=== PATIENT | female | born 1945 | race Caucasian/White ===

== ENCOUNTER 2018-10-08 13:30 | Outpatient (CLI) | payer BC, MEDICARE ==
--- NOTE | 2018-10-08 15:17 | RAD ---
CHEST TWO VIEWS: 10/08/18 INDICATION: History of cough. COMPARISON: None. FINDINGS: There is mild cardiomegaly. There are calcified granuloma within the right upper lobe. There are calc ified lymph nodes within the right aspect of the mediastinum as well as the right hilar region. Lungs are otherwise clear. No pleural effusion or pneumothorax is evident. No acute osseous abnormality is evident. IMPRESSION: 1. No acute abnormality. 2. Findings of prior granulomatous disease. 3. Mild cardiomegaly. POS: [facility]
== END 2018-10-08 13:31 | disposition home or self-care (01) ==
LOC: BICRAD 13:30
PROVIDERS: ATTEND Internal Medicine
DX: R05 Cough (principal); I51.7 Cardiomegaly
CPT/HCPCS: 71046; 80053; 80061; 82306; 83036; 85025; 85060; 86803

== ENCOUNTER 2018-10-17 14:20 | Outpatient (CLI) | payer BC, MEDICARE | END 2018-10-17 14:21 | disposition home or self-care (01) | LOC: ULT 14:20 | PROVIDERS: ATTEND Internal Medicine | DX: I51.7 Cardiomegaly (principal); I08.8 Other rheumatic multiple valve diseases | CPT/HCPCS: 93306 ==

== ENCOUNTER 2018-12-24 09:53 | Outpatient (CLI) | payer BC, MEDICARE ==
--- NOTE | 2019-02-12 13:15 | MMO ---
Bilateral MAMMO Bilat Screen [facility]. CLINICAL HISTORY: Patient is 73 years old and is seen for screening. The patient has no family history of breast cancer. The patient has no personal history of cancer. VIEWS: The views performed were: bilateral craniocaudal and bilateral mediolateral oblique. FILMS COMPARED: The present examination has been compared to prior imaging studies performed at [facility] on 07/14/2014, 11/01/2016 and 12/13/2017. MAMMOGRAM FINDINGS: There are scattered fibroglandular densities. There are no suspicious masses, suspicious calcifications, or new areas of architectural distortion. IMPRESSION: THERE IS NO MAMMOGRAPHIC EVIDENCE OF MALIGNANCY. A ROUTINE FOLLOW-UP MAMMOGRAM IN 1 YEAR IS RECOMMENDED. THE RESULTS OF THIS EXAM WERE SENT TO THE PATIENT. ACR BI-RADS Category 1 - Negative MAMMOGRAPHY NOTE: 1. A negative mammogram report should not delay a biopsy if a dominant of clinically suspicious mass is present. 2. Approximately 10% to 15% of breast cancers are not detected by mammography. 3. Adenosis and dense breasts may obscure an underlying neoplasm.
== END 2018-12-24 09:54 | disposition home or self-care (01) ==
LOC: BICMAMMO 09:53
PROVIDERS: ATTEND Internal Medicine
DX: Z12.31 Encounter for screening mammogram for malignant neoplasm of breast (principal)
CPT/HCPCS: 77063; 77067

== ENCOUNTER 2019-01-26 08:12 | Emergency (ER) | payer MEDICARE, OTHER ==
--- NOTE | 2019-01-26 08:43 | RAD ---
F3 views right toes: 01/26/2019 COMPARISON: None HISTORY: Injury to the great toe FINDINGS: Prominent degenerative changes of the first metatarsal phalangeal joint with joint space na rrowing, subchondral sclerosis, and osteophyte formation. No displaced fracture or evidence of disloc ation. IMPRESSION: Prominent first MTP degenerative change. No acute fracture or dislocation seen.
== END 2019-01-26 09:02 | disposition home or self-care (01) ==
LOC: ERS 08:12
DX: M79.674 Pain in right toe(s) (principal)

== ENCOUNTER 2019-07-15 08:11 | Outpatient (CLI) | payer MEDICARE, OTHER ==
--- NOTE | 2019-07-15 08:59 | BD ---
EXAM: DEXA bone density examination HISTORY: 74-year-old postmenopausal female for screening COMPARISON: None FINDINGS: L1--bone mineral density 0.800 g/sq cm; T score -1.7 L2--bone mineral density 0.961 g/sq cm; T score -0.6 L3--bone mineral density 0.902 g/sq cm; T score -1.7 L4--bone mineral density 1.019 g/sq cm; T score -0.4 Total L1-L4--bone mineral density 0.922 g/sq cm; T score -1.1 Left femoral neck--bone mineral density0.607; T score -2.2 Total proximal left femur--bone mineral density 0.962; T score 0.2 IMPRESSION: Osteopenia This patient has a 10 year WHO fracture risk of a major osteoporotic fracture of 14% and of a hip fracture of 3.5%.
== END 2019-07-15 08:12 | disposition home or self-care (01) ==
LOC: BICMAMMO 08:11
PROVIDERS: ATTEND Internal Medicine
DX: Z13.820 Encounter for screening for osteoporosis (principal); Z78.0 Asymptomatic menopausal state; M85.89 Other specified disorders of bone density and structure, multiple sites
CPT/HCPCS: 77080

== ENCOUNTER 2019-08-26 11:47 | Outpatient (CLI) | payer MEDICARE, OTHER ==
--- NOTE | 2019-08-26 12:15 | RAD ---
EXAM: Left hip 2 views: HISTORY: Left hip pain for several years COMPARISON: None FINDINGS: Left hip joint osteoarthrosis. Degenerative changes. No acute fracture or dislocation or other significant acute osseous abnormality. IMPRESSION: No significant acute process.
== END 2019-08-26 11:48 | disposition home or self-care (01) ==
LOC: BICRAD 11:47
PROVIDERS: ATTEND Internal Medicine
DX: M25.552 Pain in left hip (principal)

== ENCOUNTER 2019-10-02 10:31 | Outpatient (CLI) | payer MEDICARE, OTHER ==
--- NOTE | 2019-10-02 11:11 | RAD ---
XR Wrist 3 Rt View STANDARD HISTORY: Right wrist pain FINDINGS: No fracture or dislocation is identified.Degenerative changes are present most prominent at the first carpometacarpal joint
--- NOTE | 2019-10-02 11:11 | RAD ---
XR Hand Rt 3 View STANDARD HISTORY: Right hand swelling and pain FINDINGS: No fracture or dislocation is identified. Degenerative changes are present most prominent at the firs t carpometacarpal joint.
== END 2019-10-02 10:32 | disposition home or self-care (01) ==
LOC: BICRAD 10:31
PROVIDERS: ATTEND Physician Assistant
DX: M25.531 Pain in right wrist (principal); M79.89 Other specified soft tissue disorders

== ENCOUNTER 2019-10-09 10:31 | Outpatient (CLI) | payer MEDICARE ==
--- NOTE | 2019-10-09 11:18 | ULT ---
EXAM: Ultrasound of the palmar right wrist DATE: 10/09/2019 12:00 AM INDICATION: Palpable abnormality of the palmar aspect of the right wrist COMPARISON: Right wrist radiograph dated October 02, 2019 FINDING: Grayscale ultrasound images were obtained of the palpable region of interest on the palmar aspect of the right wrist. There is a nonspecific mild joint effusion involving the radiocarpal joint. Visualized aspects of the FDS and FDP tendons appear intact without evidence of T9 synovitis. Visualized ulnar neural vasculature appears within normal limits. No mass is evident. No synovial cyst is grossly evident within this region. IMPRESSION: 1. Nonspecific mild joint effusion of the right wrist. MRI the right wrist may be helpful for further evaluation. Patient does report some tenderness and pain along the ulnar aspect of the right wrist. The patient does have mild ulnar positive configuration at the DRUJ on the comparison radiogra ph. Underlying TFC tear cannot be entirely excluded. 2. No sonographic mass or cyst seen within the palpable region of interest along the palmar aspect of the right wrist. No tenosynovitis demonstrated within this region.
== END 2019-10-09 10:32 | disposition home or self-care (01) ==
LOC: ULT 10:31
PROVIDERS: ATTEND Physician Assistant
DX: M25.531 Pain in right wrist (principal); M25.431 Effusion, right wrist
CPT/HCPCS: 76999; 80053; 82248; 83615; 84100; 84550

== ENCOUNTER 2019-10-10 13:40 | Outpatient (CLI) | payer MEDICARE, OTHER ==
--- NOTE | 2019-10-10 14:10 | RAD ---
EXAM: XR Hand Lt 3 View STANDARD PROVIDED CLINICAL HISTORY: Pain COMPARISON: 10/02/2019 right hand FINDINGS: Advanced first CMC degenerative changes are seen, more conspicuous than on the right. No evidence for fracture or other acute osseous abnormality. Alignment appears anatomic. Joint spaces appear otherwise maintained. IMPRESSION: First CMC degenerative change.
== END 2019-10-10 13:41 | disposition home or self-care (01) ==
LOC: BICRAD 13:40
PROVIDERS: ATTEND Internal Medicine
DX: M79.642 Pain in left hand (principal); M79.641 Pain in right hand; M18.12 Unilateral primary osteoarthritis of first carpometacarpal joint, left hand

== ENCOUNTER 2019-11-03 10:05 | Outpatient (CLI) | payer MEDICARE ==
--- NOTE | 2019-11-03 10:19 | RAD ---
THREE VIEWS LEFT SHOULDER: HISTORY: Pain. COMPARISON: None. FINDINGS: Osteophyte formation of the inferior aspect of the humeral head is noted. No glenohumeral joint space loss. No fractures or dislocation. Visualized left ribs are unremarkable. IMPRESSION: Osteophyte formation along the inferior medial aspect of the left humerus. No significant fracture di slocation. Transcribed Date/Time: 11/03/2019 10:56 AM
== END 2019-11-03 10:06 | disposition home or self-care (01) ==
LOC: BICRAD 10:05
PROVIDERS: ATTEND Internal Medicine
DX: M25.512 Pain in left shoulder (principal)

== ENCOUNTER 2019-12-29 14:16 | Outpatient (CLI) | payer MEDICARE ==
--- NOTE | 2019-12-29 15:07 | MMO ---
Bilateral MAMMO Bilat Screen [facility]. CLINICAL HISTORY: Patient is 74 years old and is seen for screening. The patient has no family history of breast cancer. The patient has no personal history of cancer. VIEWS: The views performed were: bilateral craniocaudal with tomosynthesis and bilateral mediolateral oblique with tomosynthesis. FILMS COMPARED: The present examination has been compared to prior imaging studies performed at [facility] on 12/24/2018, and at [facility] on 07/14/2014, 11/01/2016 and 12/13/2017. This study has been interpreted with the assistance of computer-aided detection. MAMMOGRAM FINDINGS: There are scattered fibroglandular densities. Finding 1: There are stable benign appearing calcifications seen in both breasts. Finding 2: There are stable benign appearing densities seen in both breasts. There are no suspicious masses, suspicious calcifications, or new areas of architectural distortion. IMPRESSION: THERE IS NO MAMMOGRAPHIC EVIDENCE OF MALIGNANCY. A ROUTINE FOLLOW-UP MAMMOGRAM IN 1 YEAR IS RECOMMENDED. THE RESULTS OF THIS EXAM WERE SENT TO THE PATIENT. ACR BI-RADS Category 2 - Benign finding MAMMOGRAPHY NOTE: 1. A negative mammogram report should not delay a biopsy if a dominant of clinically suspicious mass is present. 2. Approximately 10% to 15% of breast cancers are not detected by mammography. 3. Adenosis and dense breasts may obscure an underlying neoplasm. Reported by: KYLIE HIGGINS MD Electonically Signed: [id number]
== END 2019-12-29 14:17 | disposition home or self-care (01) ==
LOC: BICMAMMO 14:16
PROVIDERS: ATTEND Internal Medicine
DX: Z12.31 Encounter for screening mammogram for malignant neoplasm of breast (principal)
CPT/HCPCS: 77063; 77067

== ENCOUNTER 2020-06-16 07:32 | Outpatient (CLI) | payer MEDICARE ==
--- NOTE | 2020-06-16 09:03 | MRI ---
MRI LUMBAR SPINE WITHOUT CONTRAST: Date: 06/16/2020 INDICATION: Spondylosis of lumbar spine. Low back pain. FINDINGS: Lumbar vertebra maintain normal height and alignment. Vertebral body signal is normally preserved. There is loss of disc space at L4-5 and L5-S1 with degenerative disc and end plate changes at these l evels. Mild loss of disc space at L1-2. T12-L1: No significant abnormality. L1-2: A diffuse broad based disc bulge flattens the thecal sac. Facet arthrosis and mild hypertrophy . Mild central canal stenosis. Asymmetric disc bulge to the right produces mild right foraminal encro achment. L2-3: Mild disc bulge. Mild facet arthrosis. No significant central canal or foraminal stenosis. L3-4: Mild disc bulge. Mild facet hypertrophy. No central canal or foraminal stenosis. L4-5: Diffuse broad based disc bulge. Facet arthrosis and hypertrophy. Mild central canal stenosis. Mild bilateral foraminal narrowing due to broad based disc bulge and facet hypertrophy. L5-S1: Mild diffuse disc bulge. No significant central canal stenosis. Mild bilateral foraminal narr owing secondary to hypertrophic change. IMPRESSION: Degenerative disc changes, most prominent at L1-2, L4-5, and L5-S1, with findings as described above. POS: [facility]
== END 2020-06-16 07:33 | disposition home or self-care (01) ==
LOC: BICMRI 07:32
PROVIDERS: ATTEND Orthopaedic Surgery
DX: M47.816 Spondylosis without myelopathy or radiculopathy, lumbar region (principal); M47.817 Spondylosis without myelopathy or radiculopathy, lumbosacral region; M51.86 Other intervertebral disc disorders, lumbar region; M51.87 Other intervertebral disc disorders, lumbosacral region; M48.061 Spinal stenosis, lumbar region without neurogenic claudication; M48.07 Spinal stenosis, lumbosacral region
CPT/HCPCS: 72148

== ENCOUNTER 2021-01-19 09:51 | Outpatient (CLI) | payer MEDICARE | END 2021-01-19 09:52 | disposition home or self-care (01) | LOC: BICMAMMO 09:51 | PROVIDERS: ATTEND Internal Medicine | DX: Z12.31 Encounter for screening mammogram for malignant neoplasm of breast (principal) | CPT/HCPCS: 77063; 77067 ==

== ENCOUNTER 2021-02-15 09:20 | Outpatient (CLI) | payer MEDICARE | END 2021-02-15 09:21 | disposition home or self-care (01) | LOC: BICMAMMO 09:20 | PROVIDERS: ATTEND Internal Medicine | DX: M85.89 Other specified disorders of bone density and structure, multiple sites (principal) | CPT/HCPCS: 77080 ==

== ENCOUNTER 2021-12-15 09:18 | Outpatient (CLI) | payer MEDICARE ==
[2021-12-15 10:57] LABS: Hemoglobin 12.5 g/dL (12.0-15.5); Mean Corpuscular HGB CONC 32.5 g/dL (32.0-36.0); Mean Corpuscular Hemoglobin 31.3 pg (27.0-33.0); Mean Corpuscular Volume 96.5 fl (81.6-98.3); Mean Platelet Volume 10.6 fl (7.4-10.4); Platelet Count 208 10x3/uL (150-450); RBC Distribution Width 12.5 % (11.5-14.5); Red Blood Cell (RBC) Count 3.99 10x6/uL (3.90-5.03); White Blood Cell (WBC) Count 10.5 10x3/uL (3.5-10.5)
[2021-12-15 11:03] LABS: PTT 25.3 sec (22.0-33.0); Prothrombin Time 10.6 sec (9.5-12.1)
[2021-12-15 11:10] LABS: Anion Gap 9 mmol/L (10-20); BUN (Urea Nitrogen) 18 mg/dL (9.8-20.1); Calc. Creatinine Clearance 0 mL/min (70-130); Calcium 9.5 mg/dL (7.8-10.44); Carbon Dioxide 26 mmol/L (23-31); Chloride 109 mmol/L (98-107); Glucose 99 mg/dL (83-110); Potassium 4.3 mmol/L (3.5-5.1); Sodium 140 mmol/L (136-145)
[2021-12-15 19:03] LABS: SARS-CoV-2 PCR by NAA Not Detected (NotDetected)
== END 2021-12-15 09:19 | disposition home or self-care (01) ==
LOC: LABBT 09:18
PROVIDERS: ATTEND Surgery
DX: Z01.818 Encounter for other preprocedural examination (principal); M51.16 Intervertebral disc disorders with radiculopathy, lumbar region; Z20.822 Contact with and (suspected) exposure to COVID-19
CPT/HCPCS: 80048; 85027; 85610; 85730; 93005; U0003; U0005; 93010

== ENCOUNTER 2022-06-29 12:18 | Outpatient (CLI) | payer MEDICARE | END 2022-06-29 12:19 | disposition home or self-care (01) | LOC: TBSIIMAG 12:18 | PROVIDERS: ATTEND Nurse Practitioner Family | DX: M47.26 Other spondylosis with radiculopathy, lumbar region (principal); M51.16 Intervertebral disc disorders with radiculopathy, lumbar region | CPT/HCPCS: 72148 ==

== ENCOUNTER 2022-07-13 13:00 | Outpatient (CLI) | payer MEDICARE ==
[2022-07-13 15:42] LABS: Hemoglobin 12.9 g/dL (12.0-15.5); Mean Corpuscular HGB CONC 33.3 g/dL (32.0-36.0); Mean Corpuscular Hemoglobin 31.5 pg (27.0-33.0); Mean Corpuscular Volume 94.4 fl (81.6-98.3); Mean Platelet Volume 11.7 fl (7.4-10.4); Platelet Count 215 10x3/uL (150-450); RBC Distribution Width 13.1 % (11.5-14.5); White Blood Cell (WBC) Count 11.6 10x3/uL (3.5-10.5)
[2022-07-13 15:45] LABS: MDiff Complete? YES; Manual Diff?? YES
[2022-07-13 15:57] LABS: Anion Gap 12 mmol/L (10-20); BUN (Urea Nitrogen) 10 mg/dL (9.8-20.1); Calc. Creatinine Clearance 0 mL/min (70-130); Calcium 9.7 mg/dL (7.8-10.44); Carbon Dioxide 26 mmol/L (23-31); Chloride 107 mmol/L (98-107); Estimated GFR 71; Glucose 132 mg/dL (83-110); Potassium 4.1 mmol/L (3.5-5.1); Sodium 141 mmol/L (136-145)
[2022-07-13 16:00] LABS: Eosinophils 1 % (0-10); Lymphocytes 47 % (21-51); Monocytes 4 % (0-10); Neutrophil 46 % (42-75); Reactive Lymphocytes 2 % (0-10)
[2022-07-13 16:01] LABS: Platelet Morphology Comment Appears Adequate
[2022-07-13 16:02] LABS: INR-International Normal Ratio 0.9; Prothrombin Time 10.2 sec (9.5-12.1)
== END 2022-07-13 13:01 | disposition home or self-care (01) ==
LOC: LABBT 13:00
PROVIDERS: ATTEND Orthopaedic Surgery
DX: Z01.818 Encounter for other preprocedural examination (principal); M16.12 Unilateral primary osteoarthritis, left hip; Z20.822 Contact with and (suspected) exposure to COVID-19
CPT/HCPCS: 80048; 85025; 85610; 87081; 87811; 93005; 93010

== ENCOUNTER 2022-07-18 06:56 | Inpatient (IN) | payer MEDICARE ==
[2022-07-17 10:35] VITALS: BMI 26.6
[2022-07-18] MEDS ORDERED: Tranexamic Acid 1,000 MG/10 ML VIAL ONE (07:28)
[2022-07-18] MEDS ORDERED: Sodium Chloride 0.9% 100 ML ONE ×2 (07:29→09:49)
[2022-07-18] MEDS ORDERED: Vancomycin 1 GM/200 ML BAG ONE (07:29)
[2022-07-18] MEDS ORDERED: Midazolam HCl 2 mg/2 ml Vial ONE (08:18)
[2022-07-18] MEDS ORDERED: Fentanyl 100 MCG/2 ML VIAL ONE (08:18)
[2022-07-18] MEDS ORDERED: Promethazine HCl 25 MG SUPP PR PRN (09:00)
[2022-07-18] MEDS ORDERED: HYDROcodone/Acetaminophen 5/325 mg Tablet PO PRN ×2 (09:00)
[2022-07-18] MEDS ORDERED: Moisturizing Cream (Eucerin) 113 GM JAR TOP PRN (09:00)
[2022-07-18] MEDS ORDERED: Naloxone HCl 0.4 mg/ml Vial IVP PRN (09:00)
[2022-07-18] MEDS ORDERED: diphenhydrAMINE 50 MG/ML VIAL IM PRN (09:00)
[2022-07-18] MEDS ORDERED: Naloxone HCl 0.4 mg/ml Vial IV PRN (09:00)
[2022-07-18] MEDS ORDERED: Zolpidem Tartrate 5 MG TAB PO PRN ×2 (09:00→11:44)
[2022-07-18] MEDS ORDERED: diphenhydrAMINE 50 MG/ML VIAL IVP PRN (09:00)
[2022-07-18] MEDS ORDERED: diphenhydrAMINE 25 MG CAP PO PRN ×2 (09:00→11:44)
[2022-07-18] MEDS ORDERED: traMADol HCl 50 MG TAB PO PRN ×2 (09:00)
[2022-07-18] MEDS ORDERED: Ondansetron PF 4 MG/2 ML Vial IVP PRN (09:00)
[2022-07-18] MEDS ORDERED: Bupivacaine 0.25% 10 ML VIAL EPIDURAL PRN (09:00)
[2022-07-18] MEDS ORDERED: Promethazine HCl 25 MG/ML VIAL IM PRN ×2 (09:00→11:44)
[2022-07-18] MEDS ORDERED: fentaNYL Citrate/PF 100 MCG/2 ML SYRINGE ONE ×2 (09:11→11:23)
[2022-07-18] MEDS ORDERED: CEFAZOLIN 2 GM VIAL ONE (09:49)
[2022-07-18] MEDS ORDERED: NEOSTIGMINE 3 MG/3 ML SYR 3 MG/3 ML SYRINGE ONE (10:12)
[2022-07-18] MEDS ORDERED: Glycopyrrolate 0.2 MG/ML 5 ML SYRINGE ONE (10:12)
[2022-07-18] MEDS ORDERED: Ondansetron PF 4 MG/2 ML Vial ONE (10:12)
[2022-07-18] MEDS ORDERED: Rocuronium Bromide 10 MG/ML (10ML VIAL) ONE (10:12)
[2022-07-18] MEDS ORDERED: Dexamethasone 20 MG/5 ML VIAL ONE (10:12)
[2022-07-18] MEDS ORDERED: Lidocaine 1.5% w/Epi 1:200K 30 ML VIAL (Epid Use) ONE (10:12)
[2022-07-18] MEDS ORDERED: PROPOFOL 200 MG/20 ML VIAL ONE (10:12)
[2022-07-18] MEDS ORDERED: Lidocaine 1% MPF 2 ML VIAL ONE (10:12)
[2022-07-18] MEDS ORDERED: Ropivacaine 0.2% HCl/PF 20 ML ONE (11:24)
[2022-07-18] MEDS ORDERED: Acetaminophen 325 MG TAB PO PRN (11:44)
[2022-07-18] MEDS ORDERED: Aspirin 81 mg Enteric Coated Tablet PO SCH (12:45)
[2022-07-18] MEDS: Ketorolac Tromethamine 30 MG/ML VIAL IVP SCH ×3 (17:11→23:23)
[2022-07-18] MEDS: CEFAZOLIN 2 GM in Sodium Chloride 0.9% 100 ML IVPB SCH (18:33)
[2022-07-18] MEDS: Aspirin 81 mg Enteric Coated Tablet PO SCH (21:13)
[2022-07-18] MEDS: Sodium Chloride 0.9% 1,000 ML IV SCH (21:14)
[2022-07-18] MEDS ORDERED: Vancomycin 1 GM in Premix Bag 1 BAG IVPB SCH (22:00)
[2022-07-19] MEDS: CEFAZOLIN 2 GM in Sodium Chloride 0.9% 100 ML IVPB SCH (02:55)
[2022-07-19] MEDS: Sodium Chloride 0.9% 1,000 ML IV SCH ×3 (02:56→23:51)
[2022-07-19] MEDS: FENTANYL CITRATE EPIDURAL SCH (03:26)
[2022-07-19] MEDS: SODIUM CHLORIDE 0.9% EPIDURAL SCH (03:26)
[2022-07-19] MEDS: BUPIVACAINE 0.5% EPIDURAL SCH (03:26)
[2022-07-19 05:27] LABS: Hemoglobin 10.3 g/dL (12.0-16.0); Mean Corpuscular HGB CONC 33.9 g/dL (32.0-36.0); Mean Corpuscular Hemoglobin 33.4 pg (27.0-31.0); Mean Corpuscular Volume 98.6 fL (78.0-98.0); Mean Platelet Volume 8.6 fL (7.4-10.4); Platelet Count 171 thou/uL (130-400); RBC Distribution Width 11.9 % (11.5-14.5); Red Blood Cell (RBC) Count 3.07 mill/uL (4.20-5.40); White Blood Cell (WBC) Count 12.3 thou/uL (4.8-10.8)
[2022-07-19] MEDS: Ketorolac Tromethamine 30 MG/ML VIAL IVP SCH ×4 (06:29→23:54)
[2022-07-19] MEDS: Senokot S 8.6-50 MG TAB PO SCH ×2 (09:06→20:36)
[2022-07-19] MEDS: Multivitamin W/ Minerals 1 TAB PO SCH (09:06)
[2022-07-19] MEDS: Aspirin 81 mg Enteric Coated Tablet PO SCH ×2 (09:06→20:36)
[2022-07-19] MEDS: Ferrous Gluconate 324 MG TAB PO SCH ×2 (09:06→18:49)
[2022-07-19] MEDS: Ondansetron PF 4 MG/2 ML Vial IVP PRN (09:16)
[2022-07-20] MEDS: FENTANYL CITRATE EPIDURAL SCH (00:42)
[2022-07-20] MEDS: SODIUM CHLORIDE 0.9% EPIDURAL SCH (00:42)
[2022-07-20] MEDS: BUPIVACAINE 0.5% EPIDURAL SCH (00:42)
[2022-07-20] MEDS: Sodium Chloride 0.9% 1,000 ML IV SCH ×2 (03:29→17:17)
[2022-07-20] MEDS: Ketorolac Tromethamine 30 MG/ML VIAL IVP SCH (05:17)
[2022-07-20 05:35] LABS: Hemoglobin 10.4 g/dL (12.0-16.0); Mean Corpuscular HGB CONC 33.3 g/dL (32.0-36.0); Mean Corpuscular Hemoglobin 32.7 pg (27.0-31.0); Mean Corpuscular Volume 98.1 fL (78.0-98.0); Mean Platelet Volume 8.4 fL (7.4-10.4); Platelet Count 159 thou/uL (130-400); RBC Distribution Width 11.9 % (11.5-14.5); Red Blood Cell (RBC) Count 3.19 mill/uL (4.20-5.40); White Blood Cell (WBC) Count 11.6 thou/uL (4.8-10.8)
[2022-07-20] MEDS: Multivitamin W/ Minerals 1 TAB PO SCH (08:59)
[2022-07-20] MEDS: Senokot S 8.6-50 MG TAB PO SCH (09:00)
[2022-07-20] MEDS: Aspirin 81 mg Enteric Coated Tablet PO SCH (09:00)
[2022-07-20] MEDS: Ferrous Gluconate 324 MG TAB PO SCH ×2 (09:01→19:40)
[2022-07-20] MEDS: Ondansetron PF 4 MG/2 ML Vial IVP PRN (10:06)
[2022-07-20 16:42] VITALS: BP 163/75; TEMP 97.8
== END 2022-07-20 16:40 | disposition home or self-care (01) | DRG 470 ==
LOC: SDC 06:56 → SURG A 13:32 → OBSVTOIN 07-20 13:32
PROVIDERS: ADMIT Orthopaedic Surgery; ATTEND Orthopaedic Surgery
PROC: 0SRB04Z Replacement of Left Hip Joint with Ceramic on Polyethylene Synthetic Substitute, Open Approach (ICD-10-PCS; principal; 2022-07-18)
DX: M16.12 Unilateral primary osteoarthritis, left hip (principal); C91.10 Chronic lymphocytic leukemia of B-cell type not having achieved remission; Z20.822 Contact with and (suspected) exposure to COVID-19; K59.00 Constipation, unspecified; J45.20 Mild intermittent asthma, uncomplicated; R73.03 Prediabetes; K21.9 Gastro-esophageal reflux disease without esophagitis; Z88.2 Allergy status to sulfonamides; Z88.8 Allergy status to other drugs, medicaments and biological substances; Z88.1 Allergy status to other antibiotic agents; Z88.5 Allergy status to narcotic agent; Z91.041 Radiographic dye allergy status; Z98.42 Cataract extraction status, left eye; Z98.41 Cataract extraction status, right eye; Z90.09 Acquired absence of other part of head and neck; Z90.710 Acquired absence of both cervix and uterus; Z79.82 Long term (current) use of aspirin; Z79.899 Other long term (current) drug therapy
CPT/HCPCS: 36415; 72170; 85027; C1776; J0690; J1100; J1885; J2001; J2250; J2405; J2704; J2795; J3010; J3370; J3490; J7050

== ENCOUNTER 2023-01-30 09:45 | Outpatient (CLI) | payer MEDICARE | END 2023-01-30 09:46 | disposition home or self-care (01) | LOC: BICMAMMO 09:45 | PROVIDERS: ATTEND Internal Medicine | DX: Z12.31 Encounter for screening mammogram for malignant neoplasm of breast (principal); Z78.0 Asymptomatic menopausal state; M85.80 Other specified disorders of bone density and structure, unspecified site | CPT/HCPCS: 77063; 77067; 77080 ==

== ENCOUNTER 2023-11-14 09:52 | Outpatient (CLI) | payer MEDICARE | END 2023-11-14 09:53 | disposition home or self-care (01) | LOC: BICRAD 09:52 | PROVIDERS: ATTEND Internal Medicine | DX: J16.8 Pneumonia due to other specified infectious organisms (principal); R91.8 Other nonspecific abnormal finding of lung field | CPT/HCPCS: 71046 ==

== ENCOUNTER 2024-08-08 14:05 | Outpatient (CLI) | payer MEDICARE | END 2024-08-08 14:06 | disposition home or self-care (01) | LOC: ULT 14:05 | PROVIDERS: ATTEND Internal Medicine | DX: N28.9 Disorder of kidney and ureter, unspecified (principal) | CPT/HCPCS: 76770 ==

== ENCOUNTER → 2024-09-17 | Outpatient (CLI) | payer MEDICARE | LOC: BICRAD 14:14 | PROVIDERS: ATTEND Nurse Practitioner Family | DX: M79.671 Pain in right foot (principal); M77.31 Calcaneal spur, right foot; Z96.698 Presence of other orthopedic joint implants ==

== ENCOUNTER 2025-04-23 14:55 | Outpatient (CLI) | payer MEDICARE | END 2025-04-23 14:56 | disposition home or self-care (01) | LOC: BICMAMMO 14:55 | PROVIDERS: ATTEND Internal Medicine | DX: Z78.0 Asymptomatic menopausal state (principal); M85.851 Other specified disorders of bone density and structure, right thigh | CPT/HCPCS: 77080 ==

== ENCOUNTER 2025-06-05 13:37 | Outpatient (CLI) | payer MEDICARE | END 2025-06-05 13:38 | disposition home or self-care (01) | LOC: BICULT 13:37 | PROVIDERS: ATTEND Internal Medicine | DX: N28.89 Other specified disorders of kidney and ureter (principal) | CPT/HCPCS: 76770 ==